=== PATIENT | female | born 2005 | race Two or more races ===

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

== ENCOUNTER 2023-07-26 14:54 | Outpatient (REF) | payer MEDICARE, MEDICAID, SELFPAY | END 2023-07-26 14:55 | disposition home or self-care (01) | LOC: HO.SH 14:54 | PROVIDERS: Visit Provider Family Medicine | DX: H91.93 Unspecified hearing loss, bilateral (principal) | CPT/HCPCS: 92557; 92567; 92588 ==